=== PATIENT | female | born 1960 | race African-American/Black ===

== ENCOUNTER 2017-07-17 15:21 | Emergency (ER) | payer OTHER ==
[~2017-07-17] VITALS: Ht 162.6 cm; Wt 85.0 kg
[~2017-07-17 15:21] MED LIST: ADVAIR 250/501 DISK IH; ASPIR-LOW81 MG PO; ASPIRIN325 MG PO; AUGMENTIN875 MG PO; BUSPAR10 MG PO; BUSPAR30 MG PO; CIPRODEX OTIC7.5 ML LEFT EAR; CITALOPRAM HBR20 MG PO; GABAPENTIN600 MG PO; GLIMEPIRIDE4 MG PO; GRALISE300 MG PO; HYDROCODON-ACE1 EA10 PO; JANUVIA100 MG PO; LISINOPRIL2.5 MG PO; MELOXICAM15 MG PO; OMEPRAZOLE40 M1 PO; ONE DAILY MULT1 EACH PO; PRAVASTATIN SOD10 MG PO; PRAZOSIN HCL1 MG PO; STOOL SOFTENER100 MG PO; TYLENOL REGULA325 MG PO; VENTOLIN HFA18 GM IH; VITAMIN D35000 UNIT PO
[2017-07-17 16:12] LABS: POINT-OF-CARE METER ID UU13113778; POINT-OF-CARE USER ID NUTJNM
[2017-07-17 16:30] LABS: MCH 30.3 PG (29.0-34.0); MCHC 34.8 G/DL (30.0-36.0); MEAN PLAT.VOLUME 10.7 uM^3 (9.5-12.4); PLATELET COUNT 308 K/uL (156-360); RBC DIS.WIDTH-CV 13.1 % (11.8-14.6); RBC DIS.WIDTH-SD 41.3 % (39-53); RED BLOOD COUNT 5.75 M/uL (3.80-5.20); WHITE BLOOD COUNT 14.2 K/uL (4.1-10.2)
[2017-07-17 16:43] LABS: CHLORIDE 107 mEq/L (99-109); POTASSIUM 3.4 mEq/L (3.7-5.4); SODIUM 137 mEq/L (136-147)
[2017-07-17 16:45] LABS: GLUCOSE 173 mg/dL (70-99)
[2017-07-17 16:46] LABS: ANION GAP 14 MEQ/L (2-14)
[2017-07-17 16:47] LABS: TOTAL BILIRUBIN 0.6 mg/dL (0.0-1.0)
[2017-07-17 16:48] LABS: ALKALINE PHOSPHATASE 71 IU/L (3-129)
[2017-07-17 16:49] LABS: GFR ESTIMATE (CALCULATED) > 59 mL/min/
[2017-07-17 16:50] LABS: UREA NITROGEN (BUN) 11 mg/dL (9-23)
[2017-07-17 17:59] LABS: LIPASE 57 U/L (1.0-51.0)
[2017-07-17 18:57] LABS: ADD MIUA? YES; BILIRUBIN NEGATIVE; BLOOD NEGATIVE; COLOR YELLOW ((YELLOW)); GLUCOSE (STRIP) NEGATIVE; KETONES 80; LEUKOCYTES SMALL; NITRITE NEGATIVE; PROTEIN (STRIP) 30; SPECIFIC GRAVITY 1.023 (1.000-1.030); UROBILINOGEN 0.2 MG/DL (0.2-1.0)
[2017-07-17 19:03] LABS: BACTERIA RARE /HPF; EPITHELIAL CELLS RARE /HPF; MUCUS 2+ /LPF; UCUL ADDED? NO; WHITE BLOOD CELLS 0-5 /HPF (0-5)
[2017-07-17] MEDS ORDERED: ZOFRAN4 MG PO (21:24)
[2017-07-17] MEDS ORDERED: VENTOLIN HFA18 GM IH (21:36)
[2017-07-17 21:52] VITALS: BP 132/92
== END 2017-07-17 21:56 | disposition home or self-care (01) ==
LOC: EME 15:21
DX: R11.2 Nausea with vomiting, unspecified (principal); R19.7 Diarrhea, unspecified; E86.0 Dehydration; K76.0 Fatty (change of) liver, not elsewhere classified; N63.0 Unspecified lump in unspecified breast; J45.909 Unspecified asthma, uncomplicated; E11.9 Type 2 diabetes mellitus without complications; Z79.84 Long term (current) use of oral hypoglycemic drugs; F17.200 Nicotine dependence, unspecified, uncomplicated
CPT/HCPCS: 74177; 76705; 80053; 81003; 82948; 83690; 85027; 99281; 99285; J1885; J2405; J3010; J7030

== ENCOUNTER 2017-10-07 08:10 | Day surgery (SDC) | payer OTHER ==
[~2017-10-07] VITALS: Ht 160 cm; Wt 83.9 kg
[~2017-10-07 08:10] MED LIST changes: +BASAGLAR K100 UNIT/1 SC; +MORPHABOND ER15 MG PO; +OXYCONTIN15 MG PO; +SYMBICORT60 INHALAT IH; +VICTOZA0.6 MG/0.1 SC; +ZOFRAN4 MG PO
[2017-10-07 08:47] VITALS: BP 98/63
[2017-10-07 13:17] VITALS: BP 136/64
[2017-10-07 14:26] VITALS: BP 125/78
[2017-10-07 15:09] VITALS: BP 130/81
== END 2017-10-07 15:13 | disposition home or self-care (01) ==
LOC: SDC 08:10
PROVIDERS: Neurological Surgery
DX: M47.22 Other spondylosis with radiculopathy, cervical region (principal); R29.898 Other symptoms and signs involving the musculoskeletal system; E66.9 Obesity, unspecified; Z68.32 Body mass index [BMI] 32.0-32.9, adult; Z87.891 Personal history of nicotine dependence; E11.9 Type 2 diabetes mellitus without complications; E78.5 Hyperlipidemia, unspecified; J44.9 Chronic obstructive pulmonary disease, unspecified
CPT/HCPCS: 72020; 76000; 82948; 94640; C1713; J0131; J0690; J1100; J1170; J1885; J2250; J2405; J2710; J3010; Q0175

== ENCOUNTER 2017-12-15 12:02 | Emergency (ER) | payer OTHER ==
[~2017-12-15] VITALS: Ht 160 cm; Wt 85.1 kg
[2017-12-15 13:18] LABS: ALBUMIN 4.2 g/dL (3.2-4.8); HEMATOCRIT 49.2 % (36.0-46.0); HEMOGLOBIN 16.8 G/DL (11.9-15.5); MCH 30.7 PG (29.0-34.0); MCHC 34.1 G/DL (30.0-36.0); MCV 89.9 FL (83-99); RBC DIS.WIDTH-CV 14.4 % (11.8-14.6); RBC DIS.WIDTH-SD 47.7 % (39-53); RED BLOOD COUNT 5.47 M/uL (3.80-5.20); WHITE BLOOD COUNT 8.2 K/uL (4.1-10.2)
[2017-12-15 13:22] LABS: CHLORIDE 105 mEq/L (99-109); GLUCOSE 160 mg/dL (70-99); POTASSIUM 4.3 mEq/L (3.7-5.4); SODIUM 140 mEq/L (136-147); TOTAL BILIRUBIN 0.4 mg/dL (0.0-1.0); TOTAL PROTEIN 7.5 g/dL (6.4-8.3)
[2017-12-15 13:24] LABS: ALKALINE PHOSPHATASE 75 IU/L (3-129); CREATININE 0.9 mg/dL (0.6-1.3); GFR ESTIMATE (CALCULATED) > 59 mL/min/
[2017-12-15 13:25] LABS: UREA NITROGEN (BUN) 13 mg/dL (9-23)
[2017-12-15 13:26] LABS: AST (GOT) 83 IU/L (2-34)
[2017-12-15 13:27] LABS: ALT (GPT) 86 IU/L (3-49)
[2017-12-15 13:37] LABS: LIPASE 51 U/L (1.0-51.0)
[2017-12-15 14:38] LABS: HEMATOLOGY COMMENT 1 SN; PLAT.SUFFICIENCY ADEQUATE; PLATELET COUNT 276 K/uL (156-360)
[2017-12-15 14:52] LABS: APPEARANCE SL.HAZY ((CLEAR)); BILIRUBIN NEGATIVE; BLOOD NEGATIVE; COLOR YELLOW ((YELLOW)); GLUCOSE (STRIP) 50; KETONES 20; LEUKOCYTES LARGE; NITRITE NEGATIVE; PROTEIN (STRIP) 30; SPECIFIC GRAVITY 1.023 (1.000-1.030)
[2017-12-15 15:02] LABS: BACTERIA RARE /HPF; EPITHELIAL CELLS 4+ /HPF; HYALINE CASTS 0-5 /LPF; MUCUS TRACE /LPF; RED BLOOD CELLS 0-5 /HPF (0-5); UCUL ADDED? NO; WHITE BLOOD CELLS 0-5 /HPF (0-5)
[2017-12-15] MEDS ORDERED: COMPAZINE10 MG PO (15:52)
[2017-12-15 16:32] VITALS: BP 149/90
== END 2017-12-15 16:33 | disposition home or self-care (01) ==
LOC: EME 12:02
DX: R11.2 Nausea with vomiting, unspecified (principal); R10.11 Right upper quadrant pain; R10.12 Left upper quadrant pain; E11.9 Type 2 diabetes mellitus without complications; F41.9 Anxiety disorder, unspecified; F32.9 Major depressive disorder, single episode, unspecified; F17.200 Nicotine dependence, unspecified, uncomplicated; Z91.040 Latex allergy status
CPT/HCPCS: 80053; 81003; 83690; 85027; 99281; 99283; J0780

== ENCOUNTER 2017-12-30 14:51 | Emergency (ER) | payer OTHER ==
[~2017-12-30] VITALS: Ht 160 cm; Wt 85.0 kg
[~2017-12-30 14:51] MED LIST changes: +COMPAZINE10 MG PO
[2017-12-30 16:30] LABS: BASOPHIL (%) 0.3 % (0-1); EOSINOPHIL (%) 0.2 % (0-5); HEMATOCRIT 47.6 % (36.0-46.0); HEMOGLOBIN 16.3 G/DL (11.9-15.5); IMMATURE GRANULOCYTE (%) 0.4 % (0.0-0.7); LYMPHOCYTE (%) 15.1 % (15-42); LYMPHOCYTE COUNT 2.3 K/uL (1.0-2.8); MCH 30.6 PG (29.0-34.0); MCHC 34.2 G/DL (30.0-36.0); MCV 89.5 FL (83-99); MONOCYTE (%) 7.5 % (3-12); MONOCYTE COUNT 1.1 K/uL (0-0.8); NEUTROPHIL (%) 76.5 % (45-76); NEUTROPHIL COUNT 11.6 K/uL (1.8-6.4); PLATELET COUNT 313 K/uL (156-360); RBC DIS.WIDTH-CV 14.5 % (11.8-14.6); RBC DIS.WIDTH-SD 47.2 % (39-53); RED BLOOD COUNT 5.32 M/uL (3.80-5.20); WHITE BLOOD COUNT 15.1 K/uL (4.1-10.2)
[2017-12-30 16:39] LABS: ALBUMIN 4.4 g/dL (3.2-4.8)
[2017-12-30 16:40] LABS: CHLORIDE 107 mEq/L (99-109); POTASSIUM 3.7 mEq/L (3.7-5.4); SODIUM 141 mEq/L (136-147)
[2017-12-30 16:42] LABS: GLUCOSE 172 mg/dL (70-99); TOTAL PROTEIN 7.5 g/dL (6.4-8.3)
[2017-12-30 16:44] LABS: TOTAL BILIRUBIN 0.5 mg/dL (0.0-1.0)
[2017-12-30 16:45] LABS: ALKALINE PHOSPHATASE 70 IU/L (3-129)
[2017-12-30 16:46] LABS: CREATININE 0.8 mg/dL (0.6-1.3); GFR ESTIMATE (CALCULATED) > 59 mL/min/
[2017-12-30 16:47] LABS: AST (GOT) 32 IU/L (2-34); UREA NITROGEN (BUN) 12 mg/dL (9-23)
[2017-12-30 16:48] LABS: ALT (GPT) 55 IU/L (3-49)
[2017-12-30 16:49] LABS: LIPASE 120 U/L (1.0-51.0)
[2017-12-30 16:51] LABS: TROP-I INTERPRETATION NEGATIVE; TROPONIN-I < 0.01 ng/mL (0.0-0.30)
[2017-12-30 18:02] LABS: APPEARANCE CLEAR ((CLEAR)); BILIRUBIN NEGATIVE; BLOOD NEGATIVE; COLOR YELLOW ((YELLOW)); GLUCOSE (STRIP) 50; KETONES 20; LEUKOCYTES TRACE; NITRITE NEGATIVE; PROTEIN (STRIP) NEGATIVE; SPECIFIC GRAVITY 1.039 (1.000-1.030); UROBILINOGEN 0.2 MG/DL (0.2-1.0)
[2017-12-30 18:04] LABS: BACTERIA NONE SEEN /HPF; EPITHELIAL CELLS RARE /HPF; MUCUS 1+ /LPF; RED BLOOD CELLS 0-5 /HPF (0-5); UCUL ADDED? NO; WHITE BLOOD CELLS 0-5 /HPF (0-5)
[2017-12-30] MEDS ORDERED: REGLAN10 MG PO (18:18)
[2017-12-30 20:14] VITALS: BP 154/87
== END 2017-12-30 20:17 | disposition home or self-care (01) ==
LOC: EME 14:51
PROVIDERS: Emergency Medicine
DX: K52.9 Noninfective gastroenteritis and colitis, unspecified (principal); E11.43 Type 2 diabetes mellitus with diabetic autonomic (poly)neuropathy; K31.84 Gastroparesis; J44.9 Chronic obstructive pulmonary disease, unspecified; K76.0 Fatty (change of) liver, not elsewhere classified; F41.9 Anxiety disorder, unspecified; F32.9 Major depressive disorder, single episode, unspecified; F17.200 Nicotine dependence, unspecified, uncomplicated; Z79.84 Long term (current) use of oral hypoglycemic drugs; Z91.040 Latex allergy status
CPT/HCPCS: 74177; 76705; 80053; 81003; 83605; 83690; 84484; 85025; 93005; 99281; 99285; J1200; J2405; J2765; J7030; J7120